=== PATIENT | female | born 1970 | race Caucasian/White ===

== ENCOUNTER 2019-11-17 07:42 | Outpatient (CLI) | payer BC, SELFPAY ==
--- NOTE | ~2019-11-17 | MM_ITS ---
EXAMINATION: MM screening [facility] w [facility] HISTORY: Screening mammogram TECHNIQUE: Craniocaudal and mediolateral oblique 3-D tomosynthesis images were obtained and synthetic 2-D images were generated. CAD analysis was submitted and interpreted. COMPARISON: 07/25/2018, 06/28/2017 bilateral digital screening mammogram examinations BREAST PARENCHYMAL COMPOSITION: There are scattered areas of fibroglandular density. FINDINGS: There is no evidence of suspicious mass, calcification, or architectural distortion to sugg est malignancy in either breast. There has been no suspicious interval change. IMPRESSION: 1. No mammographic evidence of malignancy. 2. Recommend routine screening mammography in one year. BI-RADS Category 1: Negative Reviewed, dictated and finalized at location A.
== END 2019-11-17 07:43 | disposition home or self-care (01) ==
LOC: ANHIMG 07:45
PROVIDERS: PCP Physician Assistant; Visit Provider Obstetrics & Gynecology
DX: Z12.31 Encounter for screening mammogram for malignant neoplasm of breast (principal)
CPT/HCPCS: 77063; 77067

== ENCOUNTER 2020-11-22 08:33 | Outpatient (CLI) | payer BC, SELFPAY ==
--- NOTE | ~2020-11-22 | MM_ITS ---
EXAMINATION: MM screening [facility] BI w [facility] HISTORY: Screening mammogram TECHNIQUE: Craniocaudal and mediolateral oblique 3-D tomosynthesis images were obtained and synthetic 2-D images were generated. CAD analysis was submitted and interpreted. COMPARISON: 11/17/2019, 07/25/2018, 06/28/2017 BREAST PARENCHYMAL COMPOSITION: The breasts are almost entirely fatty. FINDINGS: There is no evidence of suspicious mass, calcification, or architectural distortion to sugg est malignancy in either breast. There has been no suspicious interval change. IMPRESSION: 1. No mammographic evidence of malignancy. 2. Recommend routine screening mammography in one year. BI-RADS Category 1: Negative Reviewed, dictated and finalized at location A.
== END 2020-11-22 08:34 | disposition home or self-care (01) ==
LOC: ANHIMG 08:35
PROVIDERS: PCP Physician Assistant; Visit Provider Obstetrics & Gynecology
DX: Z12.31 Encounter for screening mammogram for malignant neoplasm of breast (principal)
CPT/HCPCS: 77063; 77067

== ENCOUNTER → 2021-05-09 02:00 | Outpatient (CLI) | payer BC, SELFPAY ==
[2021-05-09 17:21] LABS: SARS-CoV-2 RNA PCR Negative
== END ==
PROVIDERS: PCP Physician Assistant; Visit Provider Podiatrist Foot & Ankle Surgery
DX: Z01.812 Encounter for preprocedural laboratory examination (principal); Z20.822 Contact with and (suspected) exposure to COVID-19
CPT/HCPCS: C9803; U0003; U0005

== ENCOUNTER 2021-05-09 08:45 | Outpatient (CLI) | payer BC, SELFPAY ==
--- NOTE | 2021-05-09 08:45 | ECG_ITS ---
Measurements Intervals [place] Rate: 75 P: 39 TN: 179 QRS: -5 QRSD: 93 T: 41 QT: 393 QTc: 440 Interpretive Statements SINUS RHYTHM FREQUENT VENTRICULAR PREMATURE COMPLEXES POSSIBLE LEFT ATRIAL ENLARGEMENT INCOMPLETE RIGHT BUNDLE BRANCH BLOCK DELAYED PRECORDIAL R/S TRANSITION ABNORMAL ECG Electronically Signed On 05-09-2021 9:17:13 [employer] MACHINE OPERATOR by Taj Biswas D.O.
== END 2021-05-09 08:46 | disposition home or self-care (01) ==
LOC: ANHSURGERY 08:49
PROVIDERS: PCP Physician Assistant; Visit Provider Podiatrist Foot & Ankle Surgery
DX: Z01.810 Encounter for preprocedural cardiovascular examination (principal); E78.00 Pure hypercholesterolemia, unspecified; R94.31 Abnormal electrocardiogram [ECG] [EKG]
CPT/HCPCS: 93005

== ENCOUNTER 2021-05-12 01:21 | Day surgery (SDC) | payer BC, SELFPAY ==
[2021-05-04 15:47] VITALS: BMI 40.5
--- NOTE | 2021-05-05 09:28 | PC.NURSE ---
Report to the Outpatient Waiting Room, entrance under the green pavilion located off [facility], at time 0600 on date05/12/21. OR Time: 0730. - You will be asked a series of questions to screen for COVID 19 for your protection. - A mask is required within the hospital. - No visitors are allowed at this time. Preoperative COVID Testing Requirements: No COVID Test needed if: (proof is required; if not received patient will have Rapid Test prior to entry) Test 05/09/21 at 0840 - Patient has received COVID Vaccine at least 14 days prior to procedure date or - Patient has positive COVID test result within last 90 days of surgery date. COVID Test needed if above criteria is not met If not COVID vaccinated a COVID test must be conducted within 72 hours of surgery and patient is asked to isolate self from time of testing until procedure. You will go to the [employer] [facility] for your COVID testing. The [employer] [facility] site is located at the corner of [address] [facility]. You will only be called if COVID results are positive and your surgeon may reschedule your elective surgery date. Patients may have clear liquids (water, carbonated beverages, clear teas, apple juice) until 3 hours prior to surgery with a maximum of 20 ounces. - No food from midnight until time of surgery - Infants may have breast milk until 4 hours before surgery, infant formula 6 hours prior to surgery. - Children will be allowed to drink immediately following surgery. If applicable, please bring a bottle or sippy cup to assist with drinking. Juice, water, soda, and popsicles are readily available. For infants on formula, please bring formula the day of surgery. Pacifiers are allowed. Take the following medications with a SIP of water the morning of surgery: levothyroxine, estradiol Medications to discontinue per physician vitamins, omega 3 Date to take last dose: 05/09/21 Please no make-up, nail georgian, hairspray, perfume, deodorant, or body powder the day of surgery. No jewelry (including any body piercings) or valuables the day of surgery, leave them at home. Please take a shower or bath the night before, or the morning of, surgery with an antibacterial soap. Wear comfortable, loose fitting clothing. Children are encouraged to wear pajamas. - Jewelry must be removed prior to entering the operating room. Rings and piercings that are not removed may be cut off. - The hospital will not accept responsibility for valuables. - Please leave all valuables, including medications, at home the day of surgery. If you are going home after surgery, a licensed swing driver must drive you home. - NO public transportation without another adult. - We recommend that an adult stay with you for 24 hours following discharge. - We also recommend that you do not drive, make important decision, drink alcoholic beverages, or take any drugs that were not prescribed by your health care provider for at least 24 hours after your discharge time. For Pediatric surgeries, we recommend two adults accompany the child home (only one inside the building at this time). Follow any additional instructions given to you from your surgeon. Telephone instructions given to Azalea Dior and asked if any additional questions and then verbalized understanding. Patient advised to call surgeon office or pre surgery nurse liaison [phone] if any additional questions.
[2021-05-12] VITALS (10 sets, daily range): BP systolic 136–177; BP diastolic 77–97; PULSE 45–72; RESP 14–20; TEMP 36.4–36.7; O2SAT 96–100; BMI 41.1
--- NOTE | ~2021-05-12 | XR_ITS ---
EXAMINATION: XR surgery orthopedic EXAM DATE: 05/12/2021 08:54 INDICATION: Arthrodesis Lt Foot TECHNIQUE: Fluoroscopy used during left foot arthrodesis performed by Dr. Sanya Booth JR MD. Radiologist was not present for the imaging or procedure. Total fluoroscopic time of 8 seconds The DAP for this procedure was 0.6 cGycm2. A total of 3 images sent to PACS from the exam. FINDINGS: Frontal and lateral projections demonstrate orthopedic hardware bridging the left 1st meta tarsophalangeal joint, the 2nd and 3rd proximal interphalangeal joints, and 2 screws in the 2nd metat arsal head Correlate with procedure note. IMPRESSION: Fluoroscopy used during left foot surgery. Reviewed, dictated and finalized at location B. MACHINE TENDER [employer]
--- NOTE | 2021-05-12 06:34 | P.PNAN_ITS ---
Anes - Initial Pre Proc Eval Procedure: Operation Date: 05/12/21 07:30 Proposed Procedures p Arthrodesis of First Metatarsal Phalangeal Joint Left Foot, Nelly Shortening Second Metatarsal Osteotomy Left Foot, - Sanya Booth JR, MD s Hammer Toe Repair Second and Third Digits of Left Foot - Sanya Booth JR, MD Date/Time: 05/12/21 06:34 Surgeon: Sanya Booth JR, MD Pre Op Diagnosis: arthritic bunion lft foot, metatarsalgia 2nd mpj Patient Data Age: 51 Gender: F Height: 1.68 m Weight: 115.4 kg Last Vital Signs Temp 36.7 C 05/12/21 06:27 Pulse 45 L 05/12/21 06:27 Resp 20 05/12/21 06:27 BP 177/96 H 05/12/21 06:27 Pulse Ox 98 05/12/21 06:27 Allergies Allergy/AdvReac Type Severity Reaction Status Date / Time No Known Allergies Allergy Verified 05/12/21 06:21 Home Medications Medication Instructions Recorded Confirmed Type atorvastatin 20 mg PO DAILY 04/01/19 05/12/21 History cetirizine-pseudoephedrine 1 tablet PO Q12H PRN #12 tablet 04/01/19 05/12/21 Rx [Zyrtec-D] levothyroxine 75 mcg PO DAILY 04/01/19 05/12/21 History norethindrone ac-eth estradiol 1 tablet PO DAILY 04/01/19 05/12/21 History [Junel ()] cholecalciferol (vitamin D3) 25 mcg PO DAILY 05/04/21 05/12/21 History [Vitamin D3] ewynkdbljsck-xrx-wkwp-FA-vit K 1 tablet PO DAILY 05/04/21 05/12/21 History [Adults Multivitamin] yv-hmi-TU-O3-tz2-rgt-epa-fish 1 tablet PO DAILY 05/04/21 05/12/21 History [Adult Multi plus [place]-3] solifenacin 5 mg PO DAILY 05/04/21 05/12/21 History Patient hx anesthesia problems: none Family hx anesthesia problems: none Results Review: All pre-operative results and documents have been reviewed as part of the pre-operative evaluation. PMFSH Past Medical History Medical History (Updated 05/12/21 @ 06:34 by Mark Andrade MD) Hyperlipidemia Morbid obesity Social History Social History Smoking status: Never smoker Alcohol intake: current Substance use: never Living arrangements: with family Spiritual care concerns: No Anes - Eval Final PreProcedure Day of Procedure 05/12/21 06:34 Patient weight: morbidly obese Heart: regular rate and rhythm Lungs: clear to auscultation Airway: Mallampati scale class II Neurological: alert and oriented Last oral intake: >/= 8 hours ASA classification: III Emergent: no Anesthesia type and monitoring: general LMA and standard monitoring Results Review: All pre-operative results and documents have been reviewed as part of the pre-operative evaluation. Informed Consent: The patient's anesthetic plan and its attendant risks and bene fits were discussed with the patient/family/POA. Questions were solicited and answers provided to the satisfaction of the patient/family/POA.
[2021-05-12] MEDS: LACTATED RINGERS 1,000 ML 30 ML IV CONT ×2 (06:47→09:41)
--- NOTE | 2021-05-12 07:12 | WPDHPUPDATE1 ---
History and Physical Update Update Date/Time: 05/12/21 07:12 History and Physical has been reviewed, including an updated exam of the patient. There are NO changes in the patient's condition. Risks, benefits, and alternatives have been discussed and questions answered. Patient agrees to proceed with procedure.
[2021-05-12] MEDS: ceFAZolin 2 GM/D5W 50 ML 2 GM/50 ML BAG IVPB (07:23)
[2021-05-12] MEDS: BUPIVACAINE HCL 0.5% PF 30 ML VIAL 10 ML INFILTRATE (07:38)
[2021-05-12] MEDS: LIDOCAINE HCL 2% LOCAL INJ 20 ML VIAL 10 ML INFILTRATE (07:39)
--- NOTE | 2021-05-12 09:29 | W.PM.PROC2 ---
Procedure Note - Detailed Date of Procedure 05/12/21 Pre-op Diagnosis 1. Arthritic bunion left foot 2. Metatarsalgia 2nd metatarsal phalangeal left foot 3. Hammertoe deformity 2nd and 3rd digits left foot Post-op Diagnosis same Procedure Performed 1. Arthrodesis of the first metatarsal phalangeal joint left foot 2. Hammertoe repair 2nd and3rd digit left foot 3. Nelly shortening 2nd metatarsal osteotomy left foot Surgeon Sanya Booth JR, SACHA Anesthesia general and local Indications Painful left forefoot Description of Procedure PROCEDURE IN DETAIL: Under mild sedation, the patient was brought into the operating room, placed on the operating table in supine position. A pneumatic ankle tourniquet was placed about the patient's ipsilateral ankle. Following general anesthesia and a common peroneal nerve block and ankle ring block, the foot was then scrubbed, prepped, and draped in the usual aseptic manner. An Esmarch bandage was then used to exsanguinate the patient's foot and the pneumatic ankle tourniquet was then inflated. Surgery began in the following manner: Attention was directed to the dorsal medial aspect of the 1st metatarsophalangeal joint where there was a moderate subcutaneous prominence was noted. The incision was made starting along the central shaft of the 1st metatarsal and extending just proximal to the interphalangeal joint of the hallux. The incision was continued deep down through the subcutaneous tissues using sharp and blunt dissection. All bleeders were cauterized as necessary. At this point, the dissection was continued down to the level of the periosteum and capsular structures overlying the 1st metatarsophalangeal joint. A full length periosteum and capsular incision was made just medial to the extensor hallucis longus tendon. The periosteum and capsular structures were freed from the base of the proximal phalanx as well as the distal 1st metatarsal. At this point, the 1st metatarsophalangeal joint was identified. There was loss of articular cartilage to the head of the 1st metatarsal as well as the base of the proximal phalanx worse centrally and medially. There was significant broadening and hypertrophy of the 1st metatarsophalangeal joint. Utilizing a sagittal bone saw, the hypertrophied 1st metatarsal was resected dorsally, medially, and laterally. A power bur was used to make sure that there were no rough edges and also to further debride the hypertrophic 1st metatarsal. Next, a rongeur was used to resect the hypertrophic base of the proximal phalanx. At this point, the reamer system for the [employer] CrossCHECK system was used to denude the degenerative cartilage from the head of the 1st metatarsal as well as the base of the proximal phalanx. The cartilage and subchondral bone were fully debrided utilizing the reamer system until healthy bleeding bone was noted. Next, a 2-0 drill bit was used to further fenestrate the head of the 1st metatarsal as well as the base of the proximal phalanx in order to allow fusion across the 1st metatarsophalangeal joint. Next, a 0.045 inch K-wire was driven from the medial aspect of the base of the proximal phalanx into the head of the 1st metatarsal in order to serve as temporary fixation. A large steel plate was used to make sure that the hallux was in a rectus position both in the sagittal plane as well as the frontal and transverse plane. Excellent position of the hallux was noted. Next, a CrossCHECK plate was placed atop the 1st metatarsophalangeal joint held in position with [place] wires. Utilizing standard principles and techniques, the 2 distal drill holes were drilled and two 2.7mm mm fully-threaded locking screws were driven from dorsal to plantar holding the distal aspect of the plate intact. At this point, a 3.5mm lag screw was driven from dorsal distal to proximal plantar across the 1st metatarsophalangeal joint through the plate system with excell
[2021-05-12] MEDS: fentaNYL CITRATE INJ (*CRX) 100 MCG/2 ML VIAL 25 MCG IV PUSH (09:45)
[2021-05-12] MEDS: oxyCODONE HCL (*CRX) 5 MG TAB IR PO (11:01)
== END 2021-05-12 11:35 | disposition home or self-care (01) ==
PROVIDERS: PCP Physician Assistant; Visit Provider Podiatrist Foot & Ankle Surgery
PROC: (CPT 28750; principal; 2021-05-12 07:30)
PROC: (CPT 28750; 2021-05-12 07:30)
DX: M21.612 Bunion of left foot (principal); M77.42 Metatarsalgia, left foot; M20.42 Other hammer toe(s) (acquired), left foot; E03.9 Hypothyroidism, unspecified; E78.5 Hyperlipidemia, unspecified; E66.01 Morbid (severe) obesity due to excess calories; Z68.41 Body mass index [BMI] 40.0-44.9, adult
CPT/HCPCS: 28750; 28285 ×2; 28308; A9270; C1713; J0690; J2001; J2250; J2405; J2704; J3010; J7120

== ENCOUNTER 2022-02-09 00:43 | Day surgery (SDC) | payer BC, SELFPAY ==
[2022-02-02 13:16] VITALS: BMI 39.2
--- NOTE | 2022-02-02 13:18 | PC.NURSE ---
Report to the Outpatient Waiting Room, entrance under the green pavilion located off [facility], at time ___0600____ on date __02/09/22 . Planned Procedure Time: ___729 . Time changes happen often and if your time is changed the preop area will call you the afternoon before. - You and your visitor will be asked to self-screen and do not enter if you have any COVID symptoms. - We encourage only one visitor and NO visitors under age 16 are allowed at this time. Your visitor will receive communication by the phone number that is given day of service. - The patient visitor is requested to social distance or may leave the building when not with patient due to restrictions. - A mask is required within the hospital. Patients may have clear liquids (water, carbonated beverages, clear teas, apple juice) until 3 hours prior to surgery (0430 AM) with a maximum of 20 ounces. - No food from midnight until time of surgery - Infants may have breast milk until 4 hours before surgery, infant formula 6 hours prior to surgery. - Children will be allowed to drink immediately following surgery. If applicable, please bring a bottle or sippy cup to assist with drinking. Juice, water, soda, and popsicles are readily available. For infants on formula, please bring formula the day of surgery. Pacifiers are allowed. Take the following medications with a SIP of water the morning of surgery: _LEVOTHYROXINE__ Medications to discontinue per physician __PT STATES ALREADY STOPPING VITAMINS FOR SURGERY__ Date to take last dose Please no make-up, nail american, hairspray, perfume, deodorant, or body powder the day of surgery. No jewelry (including any body piercings) or valuables the day of surgery, leave them at home. Please take a shower or bath the night before, or the morning of, surgery with an antibacterial soap. Wear comfortable, loose fitting clothing. Children are encouraged to wear pajamas. - Jewelry must be removed prior to entering the operating room. Rings and piercings that are not removed may be cut off. - The hospital will not accept responsibility for valuables. - Please leave all valuables, including medications, at home the day of surgery. If you are going home after surgery, a licensed contract driver must drive you home. - NO public transportation without another adult. - We recommend that an adult stay with you for 24 hours following discharge. - We also recommend that you do not drive, make important decision, drink alcoholic beverages, or take any drugs that were not prescribed by your health care provider for at least 24 hours after your discharge time. For Pediatric surgeries, we recommend two adults accompany the child home. Follow any additional instructions given to you from your surgeon. If you or anyone in your household have experienced Covid symptoms in the past week, please notify your surgeon or the nurse liaison at the phone number below for possible testing. Telephone instructions given to ____PT and asked if any additional questions and then verbalized understanding. Patient advised to call surgeon office or pre surgery nurse liaison [phone] if any additional questions.
[2022-02-09] VITALS (7 sets, daily range): BP systolic 118–146; BP diastolic 71–91; PULSE 41–86; RESP 14–20; TEMP 36.6–36.8; O2SAT 94–100
--- NOTE | ~2022-02-09 | XR_ITS ---
EXAMINATION: XR surgery orthopedic DATE: 02/09/2022 08:57 INDICATION: Right Isreal bunionectomy and second hammertoe repair. TECHNIQUE: 2 fluoroscopic images of the right forefoot were obtained during procedure performed by Dr Jacinta Booth. Radiologist was not present for the imaging or procedure. The amount of fluoroscopy time used during this procedure was 0.1 minutes. COMPARISON: None. FINDINGS: Realignment osteotomies for hallux valgus correction at the neck of the first metatarsal which is fix ed with a pair of screws and at the metaphyseal region of the first proximal phalanx with medial side d staple fixation. There is also been a bunionectomy with osteotomy at the medial head of the first m etatarsal. Likely shortening osteotomy at the neck of the second metatarsal with screw fixation. Seco nd proximal interphalangeal arthrodesis with osteotomy at the head of the second proximal phalanx and axially oriented bidirectional screw fixation. There is a small amount of expected postoperative sof t tissue gas. No fractures. Mild osteoarthritis at the first metatarsophalangeal and a few interphala ngeal joints. IMPRESSION: 1. Postoperative changes in the right forefoot as detailed above. See procedure note for further deta il. Reviewed, dictated and finalized at location A. AND ANKLE SURGEON IMPRESSION: 1. Postoperative changes in the right forefoot as detailed above. See procedure note for further detail.
--- NOTE | 2022-02-09 07:05 | WPDANESEPPF ---
Anes - Initial Pre Proc Eval Procedure: Operation Date: 02/09/22 07:30 Proposed Procedures p Right Quin[place] Isreal Bunionectomy, - Sanya Booth JR, MD s Hammer Toe Repair Second Digit Right Foot, Nelly Shortening Second Metatarsal Osteotomy Right Foot - Sanya Booth JR, MD Date/Time: 02/09/22 07:05 Surgeon: Sanya Booth JR, MD Pre Op Diagnosis: bunion right foot,hammer toe 2nd digit rt foot, Patient Data Age: 52 Gender: F Height: 1.68 m Weight: 113.2 kg Last Vital Signs Temp 36.8 C 02/09/22 06:46 Pulse 43 L 02/09/22 06:46 Resp 14 02/09/22 06:46 BP 146/91 H 02/09/22 06:46 Pulse Ox 98 02/09/22 06:46 O2 Del Method Room Air 02/09/22 06:46 Allergies Allergy/AdvReac Type Severity Reaction Status Date / Time No Known Allergies Allergy Verified 02/09/22 06:54 Home Medications Medication Instructions Recorded Confirmed Type atorvastatin 40 mg tablet 20 mg PO DAILY 04/01/19 02/02/22 History levothyroxine 50 mcg capsule 75 mcg PO DAILY 04/01/19 02/09/22 History cholecalciferol (vitamin D3) 25 25 mcg PO DAILY 05/04/21 02/02/22 History mcg (1,000 unit) tablet (Vitamin D3) multivit with minerals-iron 18 1 tablet PO DAILY 05/04/21 02/02/22 History mg-folic ac 400 mcg-vit K 25 mcg tablet (Adults Multivitamin) solifenacin 5 mg tablet 5 mg PO DAILY 05/04/21 02/02/22 History estradiol-norethindrone acet 0.5 1 tablet PO DAILY #28 tabs 01/10/22 02/02/22 Rx mg-0.1 mg tablet (Amabelz) Patient hx anesthesia problems: none Family hx anesthesia problems: none Results Review: All pre-operative results and documents have been reviewed as part of the pre-operative evaluation. [facility] Past Medical History Medical History Asymptomatic bunion of left foot High blood cholesterol Hyperlipidemia Hypothyroid Morbid obesity Other abnormal clinical finding Pelvic sling Surgical History Surgical History History of orthopedic surgery Family History Family History Other Carcinoma of colon Diabetes mellitus Hypertension Malignant tumor of nasal cavity Social History Social History Smoking status: Never smoker Second hand tobacco smoke exposure: No Alcohol intake: current Drinks per week: 6 Alcohol use details: socially Substance use: never Substance use type: does not use Living arrangements: with family Gender identity (if verbalized by the patient): Female Sexual Orientation (if Verbalized by the Patient): Straight or Heterosexual Spiritual care concerns: No Anes - Eval Final PreProcedure Day of Procedure 02/09/22 07:05 Patient weight: morbidly obese Heart: regular rate and rhythm Lungs: clear to auscultation Airway: Mallampati scale class III Neurological: alert and oriented Last oral intake: >/= 8 hours ASA classification: III Emergent: no Anesthetic plan: proceed Anesthesia type and monitoring: general LMA and standard monitoring Results Review: All pre-operative results and documents have been reviewed as part of the pre-operative evaluation. Informed Consent: The patient's anesthetic plan and its attendant risks and benefits were discussed with the patient/family/POA. Questions were solicited and answers provided to the satisfaction of the patient/family/POA.
--- NOTE | 2022-02-09 07:14 | WPDHPUPDATE1 ---
History and Physical Update Update Date/Time: 02/09/22 07:14 History and Physical has been reviewed, including an updated exam of the patient. There are NO changes in the patient's condition. Risks, benefits, and alternatives have been discussed and questions answered. Patient agrees to proceed with procedure.
[2022-02-09] MEDS: SCOPOLAMINE 1.5 MG PATCH TRANSDERM (07:28)
[2022-02-09] MEDS: LACTATED RINGERS 1,000 ML 30 ML IV CONT ×2 (07:29→09:20)
--- NOTE | 2022-02-09 07:32 | WPDANESPNB ---
Anes - Peripheral Nerve Block Date/Time: 02/09/22 07:32 I have discussed with the patient/family/POA the placement of a peripheral nerve block for post-operative pain management, including associated risks, benefits, complications, and side effects. Alternative methods of post-operative analgesia were detailed. Questions were solicited and answers provided to the satisfaction of the patient/family/POA. Time-Out: A pre-procedural Time-Out was completed immediately before starting the procedure and confirmed: Patient Identification, Site, Procedure, Patient Position and the Availability of Requisite Equipment. Clinical Indications: Acute post-operative pain management requested by the operative surgeon. Nerve Block Insertion Note Anes-nerve block: posterior fossa sciatic right and other (Saphenous) Patient position: supine Skin prep: chlorhexidine Needle: 22 gauge, stimulating, insulated echogenic needle. Needle length: 80 mm Technique: nerve stimulation lost at (mA) (0.3) Injectate: bupivacaine 0.5% with epi 5 mcg/ml (20/10ml no epi) and dexamethasone (mg) (4) Observations: tolerated well Complications: none Procedure start time:: 723 Procedure end time:: 730
[2022-02-09] MEDS: ceFAZolin 2 GM/D5W 50 ML 2 GM/50 ML BAG IVPB (07:35)
--- NOTE | 2022-02-09 09:23 | W.PM.PROC2 ---
Procedure Note - Detailed Date of Procedure 02/09/22 Pre-op Diagnosis 1. Bunion deformity right foot 2. Hammer toe 2nd digit right be 3. Metatarsalgia sub 2nd metatarsal phalangeal joint right foot Post-op Diagnosis Same Procedure Performed 1. Quincy Isreal Bunionectomy right foot 2. Hammertoe repair 2nd digit right foot with proximal interphalangeal joint arthrodesis 3. Nelly Shortening 2nd metatarsal osteotomy right foot Surgeon Sanya Booth JR, JULIANM Anesthesia General and Regional (Popliteal fossa block) Indications Painful right forefoot Description of Procedure Under mild sedation, the patient was brought in to the operating room, placed on the operating table in the supine position. A pneumatic ankle tourniquet was placed about the patient's right ankle. Following general anesthesia, and a popliteal fossa block was obtained about the right lower extremity. foot utilizing 20 mL of [] to the [] lower extremity. The foot was then scrubbed, prepped, and draped in the usual aseptic manner. An Esmarch bandage was then used to exsanguinate the patient's right foot and the pneumatic ankle tourniquet was then inflated. An incision was made along the medial aspect of the first metatarsophalangeal joint along the contour of the bunion deformity. The incision was continued deep down through the subcutaneous tissues using sharp and blunt dissection. All bleeders were ligated and cauterized as necessary. At this point, dissection was continued to the first interspace via the original skin incision where the adductor hallucis tendon was initially identified and transected. Next the lateral capsule was incised as well as releasing the lateral fibular sesamoid both laterally, distally and proximally. This freed the lateral contracture present to the joint. Attention was then directed to the medial aspect of the first metatarsophalangeal joint of the right foot where a periosteum and capsular incision was made the full length of the skin incision just proximal to the interphalangeal joint of the hallux to the central shaft of the first metatarsal. The periosteum and capsular structures were reflected superiorly and inferiorly exposing the base of the proximal phalanx as well as the distal first metatarsal. Next, the medial eminence was resected from the first metatarsal head utilizing a sagittal bone saw. Next, a V-type osteotomy was created in the distal metaphyseal region of the bone utilizing a sagittal bone saw. The apex of the osteotomy pointed distally with the arms pointing proximal plantarly and proximal dorsally. The dorsal arm was made longer to accommodate internal fixation. Upon completion of the osteotomy, the capital fragment was distracted and shifted laterally into more corrected position and impacted upon the first metatarsal shaft. Next two 3.0 mm partially threaded cannulated screws were driven from dorsal to plantar across the osteotomy site with excellent compression noted. The temporary fixation was then removed. Next, the remaining medial bone shaft was resected utilizing a sagittal bone saw. Attention was then directed to the proximal phalanx medially where a small 2 mm wedge resection of bone was taken from the proximal phalanx. After the wedge resection was performed, an 8 mm compression staple was placed from medial to lateral across the osteotomy site with excellent compression noted. After this osteotomy was performed, the hallux was noted to be in a rectus position as well as significant reduction of the first intermetatarsal angle was noted with live fluoroscopic imaging. The screws and staple were appropriately aligned and oriented utilizing fluoroscopy. The wound site was then flushed with copious amounts of sterile saline. Next, a rotary power bur was used to smooth out any rough surfaces from the base of the proximal phalanx as well as the head of the first metatarsal, both dorsally, medially and laterally
--- NOTE | 2022-02-09 09:48 | SUR.PHASEI ---
0945: Simple mask removed.
--- NOTE | 2022-02-09 11:44 | W.PM.PROC2 ---
Procedure Note - Detailed Date of Procedure 02/09/22 Pre-op Diagnosis 1. Bunion deformity right foot 2. Hammertoe second digit right foot 3. Nelly shortening second metatarsal osteotomy rigth foot Post-op Diagnosis Same Procedure Performed 1. Quincy Isreal bunionectomy right foot 2. Hammertoe repair second digit right foot 3. Nelly shortening second metatarsal osteotomy right foot Surgeon Sanya Booth JR, DPM Anesthesia General and Regional (Popliteal fossa block) Indications Painful right forefoot Description of Procedure PROCEDURE IN DETAIL:? Under mild sedation, the patient was brought into the operating room, placed on the operating table in supine position.? A pneumatic ankle tourniquet was placed about the patient's ipsilateral ankle.? Following general LMA, a regional nerve block, the foot was then scrubbed, prepped, and draped in the usual aseptic manner.? An Esmarch bandage was then used to exsanguinate the patient's? foot and the pneumatic ankle tourniquet was then inflated. ? Surgery began in the following manner:? An incision was made along the medial aspect of the first metatarsophalangeal joint along the contour of the bunion deformity.? The incision was continued deep down through the subcutaneous tissues using sharp and blunt dissection. All bleeders were ligated and cauterized as necessary.? At this point, dissection was continued to the first interspace via the original skin incision where the adductor hallucis tendon was initially identified and transected. Next the lateral capsule was incised as well as releasing the lateral fibular sesamoid both laterally, distally and proximally.? This freed the lateral contracture present to the joint.? Attention was then directed to the medial aspect of the first metatarsophalangeal joint of the right foot where a periosteum and capsular incision was made the full length of the skin incision just proximal to the interphalangeal joint of the? hallux to the central shaft of the first metatarsal.? The periosteum and capsular structures were reflected superiorly and inferiorly exposing the base of the proximal phalanx as well as the distal first metatarsal.? Next, the medial eminence was resected from the first metatarsal head utilizing a sagittal bone saw.? Next, a V-type osteotomy was created in the distal metaphyseal region of the bone utilizing a sagittal bone saw.? The apex of the osteotomy pointed distally with the arms pointing proximal plantarly and proximal dorsally.? The dorsal arm was made longer to accommodate internal fixation.? Upon completion of the osteotomy, the capital fragment was distracted and shifted laterally into more corrected position and impacted upon the first metatarsal shaft.? Next two 3.0 mm partially threaded cannulated screws were driven from dorsal to plantar across the osteotomy site with excellent compression noted.? The temporary fixation was then removed.? Next, the remaining medial bone shaft was resected utilizing a sagittal bone saw.? Attention was then directed to the proximal phalanx medially where a small 2 mm wedge resection of bone was taken from the proximal phalanx.? After the wedge resection was performed, an 8 mm compression staple was placed from medial to lateral across the osteotomy site with excellent compression noted.? After this osteotomy was performed, the hallux was noted to be in a rectus position as well as significant reduction of the first intermetatarsal angle was noted with live fluoroscopic imaging.? The screws and staple were appropriately aligned and oriented utilizing fluoroscopy.? The wound site was then flushed with copious amounts of sterile saline.? Next, a rotary power bur was used to smooth out any rough surfaces from the base of the proximal phalanx as well as the head of the first metatarsal, both dorsally, medially and laterally.? The wound site was once again flushed with copious amounts of sterile saline.? Next, the redun
== END 2022-02-09 10:55 | disposition home or self-care (01) ==
PROVIDERS: PCP Physician Assistant; Visit Provider Podiatrist Foot & Ankle Surgery
PROC: (CPT 28299; principal; 2022-02-09 07:30)
PROC: (CPT 28285; 2022-02-09 07:30)
DX: M21.611 Bunion of right foot (principal); M20.41 Other hammer toe(s) (acquired), right foot; G89.18 Other acute postprocedural pain; E78.5 Hyperlipidemia, unspecified; E03.9 Hypothyroidism, unspecified; E66.01 Morbid (severe) obesity due to excess calories; Z68.41 Body mass index [BMI] 40.0-44.9, adult
CPT/HCPCS: 28285; 28308; 28299; 64450; 64445; 99199; A9270; C1713; J0690; J1100; J2250; J2405; J2704; J3010; J7120

== ENCOUNTER 2022-03-17 08:42 | Outpatient (CLI) | payer BC, SELFPAY ==
--- NOTE | ~2022-03-17 | MM_ITS ---
EXAMINATION: MM screening brigitte BI w [facility] HISTORY: Screening TECHNIQUE: Craniocaudal and mediolateral oblique 3-D tomosynthesis images were obtained and synthetic 2-D images were generated. CAD analysis was submitted and interpreted. COMPARISON: Comparison to multiple prior studies sequentially, with oldest reviewed study dated 06/28. BREAST PARENCHYMAL COMPOSITION: There are scattered areas of fibroglandular density. FINDINGS: There is no evidence of suspicious mass, calcification, or architectural distortion to sugg est malignancy in either breast. There has been no suspicious interval change. IMPRESSION: 1. No mammographic evidence of malignancy. 2. Recommend routine screening mammography in one year. BI-RADS Category 1: Negative Reviewed, dictated and finalized at location A. BLOCKER
== END 2022-03-17 08:43 | disposition home or self-care (01) ==
PROVIDERS: PCP Physician Assistant; Visit Provider Obstetrics & Gynecology
DX: Z12.31 Encounter for screening mammogram for malignant neoplasm of breast (principal)
CPT/HCPCS: 77063; 77067

== ENCOUNTER 2023-03-19 07:30 | Outpatient (CLI) | payer BC, SELFPAY ==
--- NOTE | ~2023-03-19 | MM_ITS ---
EXAMINATION: MM screening [facility] BI w [facility] HISTORY: Screening mammogram TECHNIQUE: Craniocaudal and mediolateral oblique 3-D tomosynthesis images were obtained and synthetic 2-D images were generated. CAD analysis was submitted and interpreted. COMPARISON: 03/17/2022, 11/18/2020, 11/17/2019 bilateral screening mammogram examinations BREAST PARENCHYMAL COMPOSITION: The breasts are almost entirely fatty. FINDINGS: There is no evidence of suspicious mass, calcification, or architectural distortion to sugg est malignancy in either breast. There has been no suspicious interval change. IMPRESSION: 1. No mammographic evidence of malignancy. 2. Recommend routine screening mammography in one year. BI-RADS Category 1: Negative Reviewed, dictated and finalized at location A. LA MAN
== END 2023-03-19 07:31 | disposition home or self-care (01) ==
PROVIDERS: PCP Physician Assistant; Visit Provider Obstetrics & Gynecology
DX: Z12.31 Encounter for screening mammogram for malignant neoplasm of breast (principal)
CPT/HCPCS: 77063; 77067

== ENCOUNTER 2024-04-22 10:16 | Outpatient (CLI) | payer BC, SELFPAY ==
--- NOTE | ~2024-04-22 | MM_ITS ---
EXAMINATION: MM screening [facility] BI w [facility] HISTORY: Screening TECHNIQUE: Craniocaudal and mediolateral oblique 3-D tomosynthesis images were obtained and synthetic 2-D images were generated. CAD analysis was submitted and interpreted. COMPARISON: Comparison to multiple prior studies sequentially, with oldest reviewed study dated 06/28. BREAST PARENCHYMAL COMPOSITION: Not Dense: The breasts are almost entirely fatty. FINDINGS: There is no evidence of suspicious mass, calcification, or architectural distortion to sugg est malignancy in either breast. There has been no suspicious interval change. IMPRESSION: 1. No mammographic evidence of malignancy. 2. Recommend routine screening mammography in one year. BI-RADS Category 1: Negative Reviewed, dictated and finalized at location A. RIVETER
== END 2024-04-22 10:17 | disposition home or self-care (01) ==
LOC: ANHIMG 10:17
PROVIDERS: PCP Physician Assistant; Visit Provider Obstetrics & Gynecology
DX: Z12.31 Encounter for screening mammogram for malignant neoplasm of breast (principal)
CPT/HCPCS: 77063; 77067